=== PATIENT | female | born 1985 | race Caucasian/White ===

== ENCOUNTER 2016-11-06 16:58 | Emergency (ER) | payer OTHER ==
[~2016-11-06] VITALS: Ht 170.2 cm; Wt 170.0 kg
[~2016-11-06 16:58] MED LIST: CIPR500T4 PO; FLAG500T PO; HYDR-3535 PO; LEVO.025 PO; MAXA10TA2 SL; MONT10 PO; NORC7.5T PO; OMEP20TA39 PO; XANA2TAB PO; ZOFR4TAB3 SL
[2016-11-06 17:00] VITALS: BP 141/89; PULSE 97; RESP 20; TEMP 98.8; O2SAT 97
--- NOTE | 2016-11-06 17:11 | PD ---
HPI Chief Complaint: Edema Time Seen by Provider: 17:11 Travel History International Travel<30 days: No Contact w/Intl Traveler<30days: No Traveled to known affect area: No History of Present Illness HPI 30-year-old female came to the emergency room with history of a lump noticed on the left side of her chest wall. This is below her left breast. Patient says that he just suddenly happened 2 hours ago. She did not injure herself. No history of coughing. No history of fever or chills. She otherwise feels normal. Vital signs are stable. She called her [employer]'s "[employer] hotline"and was asked to go to the emergency room to be checked out and hence she came here. [facility]LY [facility] Past Medical History Narrative Medical List of her past medical history is reviewed from the nursing note. Blood Disorders: No Anxiety: Yes Diminished Hearing: No GERD: Yes Genitourinary: Yes (FREQUENT UTI) Reproductive: Yes (POLYCYSTIC OVARIES) Migraines: Yes Thyroid Disease: Yes (hypo) ?: : 0 Para: 0 Miscarriage: 0 : 0 Ovarian Cysts: Yes (POLYCYSTIC OVARIES) Past Surgical History Tonsillectomy: Yes (T&A) Other Surgery: Yes (ADNOIDECTOMY) Social History Alcohol Use: No Tobacco Use: No Substance Use: No Allergies-Medications (Allergen,Severity, Reaction): Coded Allergies: Penicillin (Verified Allergy, Severe, THROAT SWELLING, 11/06/16) Comments List of her allergies reviewed from the nursing note. Reported Meds & Prescriptions Reported Meds & Active Scripts Active Reported Maxalt (Rizatriptan Benzoate) 10 Mg Tab Omeprazole 20 Mg Tab 20 Mg PO DAILY Montelukast (Montelukast Sodium) 10 Mg Tab 10 Mg PO HS Levothyroxine (Levothyroxine Sodium) 25 Mcg Tab 25 Mcg PO DAILY [place] (Hydrocodone-Acetaminophen) 10-325 Mg Tab 1 Tab PO Q4H PRN Xanax (Alprazolam) 2 Mg Tab 2 Mg PO Q8H PRN Narrative Medication List of her home medications reviewed from the nursing note. Review of Systems Except as stated in HPI: all other systems reviewed are Neg Physical Exam Narrative GENERAL: Awake, alert, morbidly obese SKIN: Warm and dry. HEAD: Atraumatic. Normocephalic. EYES: Pupils equal and round. No scleral icterus. No injection or drainage. ENT: No nasal bleeding or discharge. Mucous membranes pink and moist. NECK: Trachea midline. No JVD. CARDIOVASCULAR: Regular rate and rhythm. No murmur appreciated. RESPIRATORY: No accessory muscle use. Clear to auscultation. Breath sounds equal bilaterally. GASTROINTESTINAL: Abdomen soft, non-tender, nondistended. Hepatic and splenic margins not palpable. MUSCULOSKELETAL: No obvious deformities. No clubbing. No cyanosis. No edema. Left chest wall anterior laterally has a lump that is soft, nonpulsatile with no erythema of the overlying skin. NEUROLOGICAL: Awake and alert. No obvious cranial nerve deficits. Motor grossly within normal limits. Normal speech. PSYCHIATRIC: Appropriate mood and affect; insight and judgment normal. Data Data Last Documented VS Vital Signs Date Time Temp Pulse Resp B/P Pulse Ox O2 Delivery O2 Flow Rate FiO2 11/06/16 17:00 98.8 97 20 141/89 97 Room Air MDM Medical Decision Making Medical Screen Exam Complete: Yes Emergency Medical Condition: Yes Medical Record Reviewed: Yes Differential Diagnosis Lipoma, subcutaneous adipose tissue herniation Narrative Course 5:39 PM I will discharge this patient home since she's practically asymptomatic. She'll have to follow up with her primary care. Procedures EKG Prior to Arrival: No Diagnosis Primary Impression: Localized swelling of chest wall Referrals: Primary Care Physician 1 week Additional Instructions: Please apply cold compress on the area. Observe it for at least a week. If it does not go away and you need to follow up with your primary care. If symptoms worsen please return to the emergency room for reassessment. Med/Other Pt SpecificInfo: No Change to Meds Disposition: DISCHARGE HOME Condition: Maximus Rao MD Nov 06, 2016 17:11 does not go away and you need to follow up with your primary care. If symptoms worsen please return to the emergency room for reassessment. Med/Other Pt SpecificInfo: No Change to Meds Disposition: DISCHARGE HOME Condition: Maximus Rao MD Nov 06, 2016 17:11
[2016-11-06] MEDS ORDERED: MAXA10TA2 (17:44)
[2016-11-06] MEDS ORDERED: HYDR-3366 PO (17:44)
[2016-11-06] MEDS ORDERED: XANA2TAB2 PO (17:44)
[2016-11-06] MEDS ORDERED: LEVO25TA4 PO (17:44)
[2016-11-06] MEDS ORDERED: MONT10TA4 PO (17:44)
[2016-11-06] MEDS ORDERED: OMEP20TA PO (17:44)
== END 2016-11-06 18:07 | disposition home or self-care (01) ==
LOC: NEPA 16:58
DX: R22.2 Localized swelling, mass and lump, trunk (principal)
CPT/HCPCS: 99282

== ENCOUNTER 2017-12-09 13:28 | Emergency (ER) | payer OTHER ==
[~2017-12-09] VITALS: Ht 180.3 cm; Wt 164.0 kg
[~2017-12-09 13:28] MED LIST changes: -CIPR500T4 PO; -FLAG500T PO; +HYDR-3366 PO; -HYDR-3535 PO; -LEVO.025 PO; +LEVO25TA4 PO; +MAXA10TA2; -MAXA10TA2 SL; -MONT10 PO; +MONT10TA4 PO; -NORC7.5T PO; -OMEP20TA39 PO; +OMEP20TA93 PO; -XANA2TAB PO; +XANA2TAB2 PO; -ZOFR4TAB3 SL
[2017-12-09 13:30] VITALS: BP 166/106; PULSE 105; RESP 16; TEMP 98.8; O2SAT 96
--- NOTE | 2017-12-09 14:45 | PD ---
HPI Chief Complaint: Related Problem Time Seen by Provider: 13:44 Travel History International Travel<30 days: No Contact w/Intl Traveler<30days: No Traveled to known affect area: No History of Present Illness HPI This is a 31-year-old female who presents to the emergency department with an episode of vaginal bleeding that occurred spontaneously when she was sitting on the couch. She said initially it was dark red and brownish but then it became bright red. She says she has been having cramping throughout her . She denies any lightheadedness or dizziness and denies any acute abdominal pain. Her symptoms have resolved here in the emergency department. She thinks she is about 7 weeks . She has not had an ultrasound in this . This is her first . PFSH Past Medical History Blood Disorders: No Anxiety: Yes Diminished Hearing: No GERD: Yes Genitourinary: Yes (FREQUENT UTI) Reproductive: Yes (POLYCYSTIC OVARIES) Migraines: Yes Thyroid Disease: Yes (hypo) ?: LMP: 7 weeks : 0 Para: 0 Miscarriage: 0 : 0 Ovarian Cysts: Yes (POLYCYSTIC OVARIES) Past Surgical History Tonsillectomy: Yes (T&A) Other Surgery: Yes (ADNOIDECTOMY) Social History Alcohol Use: No Tobacco Use: No Substance Use: No Allergies-Medications (Allergen,Severity, Reaction): Coded Allergies: penicillin G (Unverified Allergy, Severe, THROAT SWELLING, 12/09/17) Reported Meds & Prescriptions Reported Meds & Active Scripts Active Macrobid (Nitrofurantoin Monoh/Nitrofur Macro) 100 Mg Cap 100 Mg PO BID 7 Days Reported Maxalt (Rizatriptan Benzoate) 10 Mg Tab Omeprazole 20 Mg Tab 20 Mg PO DAILY Montelukast (Montelukast Sodium) 10 Mg Tab 10 Mg PO HS Levothyroxine (Levothyroxine Sodium) 25 Mcg Tab 25 Mcg PO DAILY [place] (Hydrocodone-Acetaminophen) 10-325 Mg Tab 1 Tab PO Q4H PRN Xanax (Alprazolam) 2 Mg Tab 2 Mg PO Q8H PRN Review of Systems Except as stated in HPI: all other systems reviewed are Neg Physical Exam Narrative GENERAL:Well appearing, no acute distress SKIN: Focused skin assessment warm and dry. HEAD: Atraumatic. Normocephalic. EYES: Pupils equal and round. No injection or drainage. ENT: Moist mucous membranes NECK: Trachea midline. CARDIOVASCULAR: Regular rate and rhythm. No murmur appreciated. RESPIRATORY: Clear to auscultation. Breath sounds equal bilaterally. GASTROINTESTINAL: Abdomen soft, non-tender, nondistended. [employer]: normal appearing cervix, no discharge or blood, cervix is closed, long and high MUSCULOSKELETAL: No obvious deformities. NEUROLOGICAL: Awake and alert. No obvious cranial nerve deficits. Moving all extremities. PSYCHIATRIC: Appropriate mood and affect; insight and judgment normal. Data Data Last Documented VS Vital Signs Date Time Temp Pulse Resp B/P (MAP) Pulse Ox O2 Delivery O2 Flow Rate FiO2 12/09/17 13:59 16 12/09/17 13:30 98.8 105 166/106 (126) 96 Orders Orders Beta Hcg (Quant/Titer) (12/09/17 14:22) Complete Blood Count With Diff (12/09/17 14:22) Basic Metabolic Panel (Bmp) (12/09/17 14:22) Type And Screen (12/09/17 14:22) Urinalysis - C+S If Indicated (12/09/17 14:22) Urine Culture (12/09/17 14:40) Us Pelvis (Ques Pr/Ect)W Trans (12/09/17 ) Labs Laboratory Tests Test 12/09/17 14:30 12/09/17 14:40 White Blood Count 9.1 TH/MM3 Red Blood Count 3.83 MIL/MM3 Hemoglobin 12.5 GM/DL Hematocrit 36.1 % Mean Corpuscular Volume 94.4 FL Mean Corpuscular Hemoglobin 32.6 PG Mean Corpuscular Hemoglobin Concent 34.6 % Red Cell Distribution Width 13.7 % Platelet Count 231 TH/MM3 Mean Platelet Volume 7.1 FL Neutrophils (%) (Auto) 71.9 % Lymphocytes (%) (Auto) 21.7 % Monocytes (%) (Auto) 5.5 % Eosinophils (%) (Auto) 0.6 % Basophils (%) (Auto) 0.3 % Neutrophils # (Auto) 6.6 TH/MM3 Lymphocytes # (Auto) 2.0 TH/MM3 Monocytes # (Auto) 0.5 TH/MM3 Eosinophils # (Auto) 0.1 TH/MM3 Basophils # (Auto) 0.0 TH/MM3 CBC Comment DIFF FINAL Differential Comment Blood Urea Nitrogen 7 MG/DL Creatinine 0.81 MG/DL Random Glucose 92 MG/DL Calcium Level 8.4 MG/DL Sodium Level 140 MEQ/L Potassium Level 3.8 MEQ/L Chloride Level 108 MEQ/L Carbon Dioxide Level 26.8 MEQ/L Anion Gap 5 MEQ/L Estimat Glomerular Filtration Rate 82 ML/MIN Human Chorionic Gonadotropin, Quant 6727 MIU/ML Urine Color YELLOW Urine Turbidity CLEAR Urine pH 5.5 Urine Specific [place] 1.010 Urine Protein NEG mg/dL Urine Glucose (UA) NEG mg/dL Urine Ketones NEG mg/dL Urine Occult Blood SMALL Urine Nitrite NEG Urine Bilirubin NEG Urine Urobilinogen LESS THAN 2.0 MG/DL Urine Leukocyte Esterase TRACE Urine RBC 3 /hpf Urine WBC 3 /hpf Urine Squamous Epithelial Cells 1 /hpf Urine Bacteria MANY /hpf Urine Mucus FEW /lpf Microscopic Urinalysis Comment CULTURE INDICATED MDM Medical Decision Making Medical Screen Exam Complete: Yes Emergency Medical Condition: Yes Interpretation(s) Afebrile, mild tachycardia, hypertensive No leukocytosis Electrolytes are reassuring HCG 6727 Urinalysis demonstrates many bacteria Pelvic ultrasound: Early IUP, too early for heartbeat Differential Diagnosis Ectopic , threatened miscarriage, incomplete miscarriage, complete miscarriage, blighted ovum Narrative Course This is a 31-year-old female who presents to the emergency department with vaginal bleeding in the setting of early . Her hCG is 6000. Ultrasound demonstrates an early IUP but no heartbeat is appreciated. This may be due to gestational age. I counseled the patient she needs to follow-up with her street supervisor for repeat ultrasound. She is Rh+. She has a benign pelvic exam. Urinalysis demonstrates a large amount of bacteria for which she will be treated. Patient will be discharged home. Diagnosis Primary Impression: Threatened miscarriage Patient Instructions: General Instructions Additional Instructions: Follow-up with your street supervisor for an ultrasound in 1-2 weeks. If you develop severe abdominal pain, fever, persistent vomiting or inability to eat, heavy vaginal bleeding using more than one pad an hour, lightheadedness , dizziness, chest pain or shortness of breath return to the emergency department immediately. Followup with your street supervisor as soon as possible. Take Tylenol as needed for pain. Med/Other Pt SpecificInfo: No Change to Meds Scripts Nitrofurantoin Monohydrate Macrocrystals (Macrobid) 100 Mg Cap 100 MG PO BID for Infection for 7 Days, #14 CAP 0 Refills Prov: Ashly Short MD 12/09/17 Disposition: 01 DISCHARGE HOME Condition: Stable Ashly Short MD Dec 09, 2017 14:45
[2017-12-09 14:47] LABS: AUTOMATED NEUTROPHIL # 6.6 TH/MM3 (1.8-7.7); BASOPHIL % 0.3 % (0.0-2.0); EOSINOPHIL # 0.1 TH/MM3 (0-0.4); EOSINOPHIL % 0.6 % (0.0-4.0); HEMATOCRIT 36.1 % (35.0-46.0); HEMOGLOBIN 12.5 GM/DL (11.6-15.3); LYMPH % 21.7 % (9.0-44.0); MEAN CELL VOLUME 94.4 FL (80.0-100.0); MEAN CORPUSCULAR HEMOGLOBIN 32.6 PG (27.0-34.0); MEAN CORPUSCULAR HGB CONC 34.6 % (32.0-36.0); MEAN PLATELET VOLUME 7.1 FL (7.0-11.0); MONO % 5.5 % (0.0-8.0); MONOCYTE # 0.5 TH/MM3 (0-0.9); NEUT % 71.9 % (16.0-70.0); PLATELET COUNT 231 TH/MM3 (150-450); RED BLOOD COUNT 3.83 MIL/MM3 (4.00-5.30); RED CELL DISTRIBUTION WIDTH 13.7 % (11.6-17.2); WHITE BLOOD COUNT 9.1 TH/MM3 (4.0-11.0)
[2017-12-09 15:05] LABS: BICARBONATE 26.8 MEQ/L (21.0-32.0); CALCIUM 8.4 MG/DL (8.5-10.1); CREATININE 0.81 MG/DL (0.50-1.00)
[2017-12-09 15:44] LABS: BACTERIA, URINE MANY /hpf; BILIRUBIN, URINE NEG (NEG); BLOOD, URINE SMALL (NEG); GLUCOSE,URINE NEG (NEG); KETONE, URINE NEG (NEG); MUCUS URINE FEW /lpf (OCC); NITRITE,URINE NEG (NEG); PH, URINE 5.5 (5.0-8.5); SQUAMOUS EPITHELIAL CELL URINE 1 /hpf (0-5); URINE COLOR YELLOW (YELLW/STRAW); URINE LEUKOCYTE ESTERASE TRACE (NEG)
--- NOTE | 2017-12-09 16:50 | RADRPT ---
EXAM DATE/TIME: 12/09/2017 15:48 [place] COMPARISON: No previous studies available for comparison. INDICATIONS : Pelvic spotting and cramping. LAB(S): Beta-hC,727 MEDICAL HISTORY : . Hypothyroidism. Gastroesophageal reflux disease. Polycystic ovarian disease. Migraines. An xiety. SURGICAL HISTORY : Tonsillectomy. Cholecystectomy. Adenoidectomy. ENCOUNTER: Initial ACUITY: 1 day PAIN SCORE: 4/10 LOCATION: Bilateral pelvis MEASUREMENTS: UTERUS: 9.1 x 5.7 x 4.4 cm ENDOMETRIAL STRIPE: 18 mm RIGHT OVARY: 3.2 x 2.9 x 3.8 cm LEFT OVARY: 2.3 x 3.0 x 1.7 cm FREE FLUID: No CROWN RUMP LENGTH: 0.17 cm FHR: Nonvisualized BPM FINDINGS: Intrauterine gestational sac is present measures 1.2 cm (5 weeks and 2 days. Questionable crown rump length is present without heart beat. Yolk sac is also questionably identified. No nabothian cysts wi th approximate 1.6 cm cyst in the right ovary. CONCLUSION: Early IUP and follow up is suggested for viability. KMaryann Orozco MD on December 09, 2017 at 16:46 Board Certified Radiologist. This report was verified electronically.
[2017-12-09] MEDS ORDERED: MACR100C2 PO (16:53)
== END 2017-12-09 17:10 | disposition home or self-care (01) ==
LOC: NEPD 13:28
DX: O20.0 Threatened abortion (principal); O26.891 Other specified pregnancy related conditions, first trimester; R82.71 Bacteriuria; B96.1 Klebsiella pneumoniae [K. pneumoniae] as the cause of diseases classified elsewhere; O99.281 Endocrine, nutritional and metabolic diseases complicating pregnancy, first trimester; E03.9 Hypothyroidism, unspecified; E28.2 Polycystic ovarian syndrome; Z3A.01 Less than 8 weeks gestation of pregnancy
CPT/HCPCS: 76700; 76817; 80048; 81001; 84702; 85025; 86850; 86900; 86901; 87077; 87086; 87186; 99284

== ENCOUNTER 2017-12-22 18:16 | Emergency (ER) | payer OTHER ==
[~2017-12-22 18:16] MED LIST changes: +MACR100C2 PO
[2017-12-22 18:19] VITALS: BP 171/81; PULSE 92; RESP 18; TEMP 98.8; O2SAT 98
[2017-12-22 18:45] VITALS: BP 149/75; PULSE 95; RESP 16; O2SAT 98
--- NOTE | 2017-12-22 18:50 | PD ---
HPI Chief Complaint: Medication Refill Request Time Seen by Provider: 18:47 Travel History International Travel<30 days: No Contact w/Intl Traveler<30days: No History of Present Illness HPI Patient presents to the emergency department on the advice of her SOLDERING INSPECTOR. Dr. Carballo met her in the emergency Department, he does not want us to see the patient. PFSH Past Medical History Blood Disorders: No Anxiety: Yes Diminished Hearing: No GERD: Yes Genitourinary: Yes (FREQUENT UTI) Reproductive: Yes (POLYCYSTIC OVARIES) Migraines: Yes Thyroid Disease: Yes (hypo) : 0 Para: 0 Miscarriage: 0 : 0 Ovarian Cysts: Yes (POLYCYSTIC OVARIES) Past Surgical History Tonsillectomy: Yes (T&A) Other Surgery: Yes (ADNOIDECTOMY) Social History Alcohol Use: No Tobacco Use: No Substance Use: No Allergies-Medications (Allergen,Severity, Reaction): Coded Allergies: penicillin G (Unverified Allergy, Severe, THROAT SWELLING, 12/09/17) Reported Meds & Prescriptions Reported Meds & Active Scripts Active Macrobid (Nitrofurantoin Monoh/Nitrofur Macro) 100 Mg Cap 100 Mg PO BID 7 Days Reported Maxalt (Rizatriptan Benzoate) 10 Mg Tab Omeprazole 20 Mg Tab 20 Mg PO DAILY Montelukast (Montelukast Sodium) 10 Mg Tab 10 Mg PO HS Levothyroxine (Levothyroxine Sodium) 25 Mcg Tab 25 Mcg PO DAILY [place] (Hydrocodone-Acetaminophen) 10-325 Mg Tab 1 Tab PO Q4H PRN Xanax (Alprazolam) 2 Mg Tab 2 Mg PO Q8H PRN Review of Systems Except as stated in HPI: all other systems reviewed are Neg Physical Exam Narrative See Dr. Carballo's dictation Data Data Last Documented VS Vital Signs Date Time Temp Pulse Resp B/P (MAP) Pulse Ox O2 Delivery O2 Flow Rate FiO2 12/22/17 18:19 98.8 92 18 171/81 (111) 98 MDM Medical Decision Making Medical Screen Exam Complete: Yes Emergency Medical Condition: No Differential Diagnosis SOLDERING INSPECTOR Narrative Course Please see SOLDERING INSPECTOR dictation Diagnosis Primary Impression: Encounter for medical screening examination Mary Morel Dec 22, 2017 18:50
--- NOTE | 2017-12-22 19:49 | MB ---
cc: [place] DATE OF CONSULTATION 12/22/17 - in emergency room. HISTORY OF PRESENT ILLNESS Ms. Mclean is a 31-year-old white female who has been established in my office this week for evaluation of the multiple medications she is on. She has been seen by Dr. Cira Mejía for many years and has been on Lortab one by mouth q.i.d. p.r.n. pain. She has severe knee and back pain and has been on this medicine for a long time. I told her that medicine would be fine to take during , but the baby may be addicted. We went over all of this in the office. She is also on Xanax but has plenty of that. I would like to get her off the Xanax completely and get her down to the lowest dose. The problem now is she went to see Dr. Mejía today and she was not seen. She did not want to see the patient because she was . She will definitely have withdrawals this weekend if she does not get her Lortab refilled. I asked her to come to the emergency department so I could see her, write the prescription and get her through the next week so I can see her again in the office for an evaluation. She understands these drugs are not good in , but at this present time if we stop her immediately she will have withdrawals. Therefore, I am going to go ahead and refill her medication. REVIEW OF SYSTEMS She has chronic back pain. She has chronic left knee pain from an accident. Currently, her pain is well-controlled on these medications. PHYSICAL EXAMINATION GENERAL: A large white female in no acute distress. VITAL SIGNS: Blood pressure is 149/75. Her pulse is 95. CHEST: Clear to auscultation. HEART: Regular rate and rhythm. ABDOMEN: Soft, large, nontender ASSESSMENT/PLAN 1. Chronic pain, narcotic dependent with an early . I saw her yesterday in the office and I am going to refill her medications through the emergency room as there was no other venue to see her on Monday evening. We will get her seen in the office in the very near future. IDENTIFICATION IDENTIFICATION Was / R. MD SUKH Moya/ /6:42 PM /7:24 PM
== END 2017-12-22 20:00 | disposition home or self-care (01) ==
LOC: NEPE 18:16
DX: Z76.89 Persons encountering health services in other specified circumstances (principal); O26.891 Other specified pregnancy related conditions, first trimester; M54.9 Dorsalgia, unspecified; M25.569 Pain in unspecified knee; G89.29 Other chronic pain; Z3A.00 Weeks of gestation of pregnancy not specified
CPT/HCPCS: 99281

== ENCOUNTER 2018-01-22 21:48 | Emergency (ER) | payer MEDICAID, OTHER ==
[~2018-01-22] VITALS: Ht 177.8 cm; Wt 170.0 kg
[2018-01-22 22:57] VITALS: BP 161/75; PULSE 113; RESP 18; TEMP 99.4; O2SAT 97
== END 2018-01-23 00:50 | disposition left against medical advice (07) ==
LOC: NED 21:48
DX: O26.891 Other specified pregnancy related conditions, first trimester (principal); R21 Rash and other nonspecific skin eruption; Z3A.12 12 weeks gestation of pregnancy; Z53.21 Procedure and treatment not carried out due to patient leaving prior to being seen by health care provider
CPT/HCPCS: 99281

== ENCOUNTER 2018-03-09 21:42 | Emergency (ER) | payer MEDICAID ==
[2018-03-09] MEDS ORDERED: LACTATED RINGER'S 1000 ML INJ 1,000 ML IV SCH (22:35)
[2018-03-09] MEDS ORDERED: ONDANSETRON HCL 4 MG/2 ML VIAL IV ONE (22:45)
[2018-03-09] MEDS ORDERED: PROCHLORPERAZINE INJ 10 MG/2 ML VIAL IV PUSH ONE (22:45)
[2018-03-09] MEDS ORDERED: ONDANSETRON INJ 8 MG in SODIUM CHLORIDE 0.9% INJ 50 ML IV PUSH ONE (22:45)
[2018-03-09] MEDS ORDERED: METOCLOPRAMIDE HCL 10 MG/2 ML VIAL IV PUSH ONE (22:45)
[2018-03-09] MEDS ORDERED: PROM25TA10 PO (22:47)
[2018-03-09] MEDS ORDERED: PROM1SUP7 RECTAL (22:48)
--- NOTE | 2018-03-09 22:48 | PD ---
HPI Chief Complaint Nausea and vomiting Date Seen: March 09, 2018 Time Seen: 22:41 Travel History International Travel<30 Days: No Contact w/Intl Traveler<30Days: No Known Affected Area: No History of Present Illness HPI Patient is 32-year-old white female at [address] Carballo for care and presents with persistent nausea and vomiting resistant to oral Zofran at home she has tried no other medicines. She has been trying very bland diet but has continued to vomit all day today. Denies bleeding leakage or abdominal pain. Patient is morbidly obese at over 300 pounds. Patient also describes having fever at times over the last several days usually low-grade but she did take it once it was 102 she took some Tylenol and is gone down and is afebrile now Weeks Gestation: 19 Para: 0 : 2 Miscarriage: 1 History Obstetric History Obstetric History 1 early loss In this she had morning sickness nausea vomiting that went away and then about a week ago is restarted this all over again as well. Social History Alcohol Use: No Tobacco Use: No Substance Abuse: No Allergies-Medications (Allergen,Severity, Reaction): Coded Allergies: penicillin G (Unverified Allergy, Severe, THROAT SWELLING, 01/22/18) Home Meds Active Scripts Nitrofurantoin Monohydrate Macrocrystals (Macrobid) 100 Mg Cap, 100 MG PO BID for Infection for 7 Days, #14 CAP 0 Refills Prov:Ashly Short MD 12/09/17 Reported Medications Rizatriptan (Maxalt) 10 Mg Tab 11/06/16 Omeprazole (Omeprazole) 20 Mg Tab, 20 MG PO DAILY, #30 TAB 0 Refills 11/06/16 Montelukast (Montelukast) 10 Mg Tab, 10 MG PO HS, #30 TAB 0 Refills 11/06/16 Levothyroxine (Levothyroxine) 25 Mcg Tab, 25 MCG PO DAILY for Thyroid, #30 TAB 0 Refills 11/06/16 Hydrocodone-Acetaminophen ([place]) 10-325 Mg Tab, 1 TAB PO Q4H Y for PAIN, TAB 0 Refills 11/06/16 Alprazolam (Xanax) 2 Mg Tab, 2 MG PO Q8H Y for ANXIETY, TAB 0 Refills 1/1/17 Review of Systems General / Constitutional: Fever, No: Weight Gain, Chills, Other Eyes: No: Diploplia, Blurred Vision, Visual changes, Pain, Photophobia HENT: No: Headaches, Vertigo, Lightheadedness Cardiovascular: No: Irregular Rhythm, Chest Pain or Discomfort, Palpitations, Tachycardia, Syncope, Varicosities, Edema, Cyanosis Respiratory: No: Cough, Short of Breath, Other Gastrointestinal: Nausea, Vomiting, No: Diarrhea Genitourinary: No: Decreased Urinary Output, Oliguria Musculoskeletal: No: Limited ROM, Weakness, Cramping, Edema, Pain Skin: No Rash, No Itching, No Dryness, No Lumps, No Change in Pigmentation, No Change in Nails, No Alopecia, No Lesions Neurologic: No: Weakness, Dizziness, Syncope, Focal Abnormalities, Coordination Problem, Headache, Slurred Speech, Seizures Psychiatric: No: Depression, Suicidal Ideations, Homicidal Ideation Endocrine: No: Heat Intolerance, Cold Intolerance, Polydipsia, Polyuria, Other Physical Exam Narrative GENERAL: Morbidly obese patient. SKIN: Warm and dry. HEAD: Normocephalic and atraumatic. EYES: No scleral icterus. No injection or drainage. ENT: No nasal drainage noted. Mucous membranes pink. Airway patent. NECK: Supple, trachea midline. No JVD. CARDIOVASCULAR: Regular rate and rhythm without murmurs, gallops, or rubs. RESPIRATORY: Breath sounds equal bilaterally. No accessory muscle use. BREASTS: Bilateral exam showed no masses , no retractions, no nipple discharge. ABDOMEN/GI: Abdomen soft, non-tender, bowel sounds present, no rebound, no guarding Gravid to [19-] weeks size Fundal Height: [At umbilicus-] GENITOURINARY: FHT's: 145 EXTREMITIES: No cyanosis or edema. BACK: Nontender without obvious deformity. No CVA tenderness. NEUROLOGICAL: Awake and alert. Motor and sensory grossly within normal limits. Five out of 5 muscle strength in all muscle groups. Normal speech. Data Data Orders Orders Urinalysis - C+S If Indicated (03/09/18 22:29) Vital Signs (Adult) .ON ADMISSION (03/09/18 22:35) ^ Labor Status (03/09/18 22:35) ^ Non Stress Test (03/09/18 22:35) Comprehensive Metabolic Panel (03/09/18 22:35) Lactated Ringer's 1000 Ml Inj (Lr 1000 M (03/09/18 22:35) Ondansetron Inj (Zofran Inj) (03/09/18 22:45) Complete Blood Count With Diff (03/09/18 22:36) Metoclopramide Inj (Reglan Inj) (03/09/18 22:45) Prochlorperazine Inj (Compazine Inj) (03/09/18 22:45) Labs Laboratory Tests Test 03/09/18 22:30 MDM Interpretation(s) Patient is 32-year-old white female at [address] Carballo presents with persistent nausea and vomiting, no diarrhea, no bleeding leakage or abdominal pain. She has described fever over the last couple of days the highest being 102, she seen Dr. Carballo for this she has been on Zofran orally and has not been working well. Plan Plan IV hydration with a liter of IV fluid, IV Compazine, Reglan, Zofran. CBC CMP, urinalysis Diagnosis Diagnosis: Primary Impression: Nausea and vomiting in prior to 22 weeks gestation Additional Impressions: Morbid obesity 19 weeks gestation of Disposition: DISCHARGE HOME Condition: Stable Scripts Promethazine Supp (Phenergan Supp) 25 Mg Supp 25 MG RECTAL Q6H Y for NAUSEA OR VOMITING, #7 SUPP 0 Refills Prov: Erlin Upton II, MD 03/09/18 Promethazine (Phenergan) 25 Mg Tablet 25 MG PO Q6H Y for NAUSEA OR VOMITING, #30 TAB 0 Refills Prov: Erlin Upton II, MD 03/09/18 Erlin Upton II, MD March 09, 2018 22:48
[2018-03-09 22:53] LABS: AUTOMATED NEUTROPHIL # 3.8 TH/MM3 (1.8-7.7); BASOPHIL % 0.3 % (0.0-2.0); EOSINOPHIL % 0.5 % (0.0-4.0); HEMATOCRIT 32.4 % (35.0-46.0); HEMOGLOBIN 11.4 GM/DL (11.6-15.3); LYMPH % 35.8 % (9.0-44.0); LYMPHOCYTE # 2.4 TH/MM3 (1.0-4.8); MEAN CELL VOLUME 93.1 FL (80.0-100.0); MEAN CORPUSCULAR HEMOGLOBIN 32.9 PG (27.0-34.0); MEAN CORPUSCULAR HGB CONC 35.3 % (32.0-36.0); MEAN PLATELET VOLUME 7.5 FL (7.0-11.0); MONO % 6.9 % (0.0-8.0); MONOCYTE # 0.5 TH/MM3 (0-0.9); NEUT % 56.5 % (16.0-70.0); PLATELET COUNT 175 TH/MM3 (150-450); RED BLOOD COUNT 3.48 MIL/MM3 (4.00-5.30); RED CELL DISTRIBUTION WIDTH 13.8 % (11.6-17.2); WHITE BLOOD COUNT 6.7 TH/MM3 (4.0-11.0)
[2018-03-09 22:57] LABS: BILIRUBIN, URINE NEG (NEG); GLUCOSE,URINE NEG (NEG); KETONE, URINE NEG (NEG); NITRITE,URINE NEG (NEG); PH, URINE 5.5 (5.0-8.5); URINE COLOR YELLOW (YELLW/STRAW); URINE LEUKOCYTE ESTERASE TRACE (NEG)
[2018-03-09 23:00] LABS: BLOOD, URINE TRACE (NEG)
[2018-03-09 23:06] LABS: BACTERIA, URINE OCC /hpf; MUCUS URINE FEW /lpf (OCC); SQUAMOUS EPITHELIAL CELL URINE 4 /hpf (0-5)
[2018-03-09 23:10] LABS: ALBUMIN 3.1 GM/DL (3.4-5.0); ALT (GPT) 20 U/L (10-53); AST (GOT) 17 U/L (15-37); BICARBONATE 25.2 MEQ/L (21.0-32.0); BLOOD UREA NITROGEN 7 MG/DL (7-18); CALCIUM 8.5 MG/DL (8.5-10.1); CHLORIDE 107 MEQ/L (98-107); CREATININE 0.68 MG/DL (0.50-1.00); GLOMERULAR FILTRATION RATE 100 ML/MIN (>89); GLUCOSE,RANDOM 83 MG/DL (74-106); SODIUM (NA) 141 MEQ/L (136-145)
[2018-03-09 23:11] LABS: ALKALINE PHOSPHATASE 30 U/L (45-117); TOTAL BILIRUBIN ADULT 0.3 MG/DL (0.2-1.0); TOTAL PROTEIN 6.6 GM/DL (6.4-8.2)
== END 2018-03-09 23:34 | disposition home or self-care (01) ==
LOC: HOBED 21:42
DX: O21.9 Vomiting of pregnancy, unspecified (principal); O99.212 Obesity complicating pregnancy, second trimester; Z3A.19 19 weeks gestation of pregnancy; Z37.9 Outcome of delivery, unspecified; Z88.0 Allergy status to penicillin
CPT/HCPCS: 80053; 81001; 85025; 96374; 96375; 99284; J0780; J2405; J2765; J7120